=== PATIENT | female | born 1980 | race Caucasian/White ===

== ENCOUNTER 2019-01-19 08:08 | Day surgery (SDC) | payer OTHER ==
[2019-01-19] MEDS: LACTATED RINGER'S 1,000 ML IV (07:00)
[2019-01-19] MEDS: SOD CHLORIDE 0.9% 1,000 ML IV (07:00)
[2019-01-19 08:57] LABS: ADD MAN DIFF? NO
[2019-01-19 08:58] LABS: BASOPHIL # 0.1 10^3/ul (0.0-0.1); EOSINOPHILS # 0.2 10^3/ul (0.0-0.5); EOSINOPHILS % 2.8 % (0.0-7.0); HEMATOCRIT 35.3 % (37.0-47.0); HEMOGLOBIN 12.2 g/dl (12.0-16.0); LYMPHOCYTES % 36.6 % (15.0-51.0); MEAN CORPUSCULAR HEMOGLOBIN 30.6 pg (29.0-33.0); MEAN CORPUSCULAR HGB CONC 34.6 g/dl (32.0-37.0); MEAN CORPUSCULAR VOLUME 88.5 fl (82.0-101.0); MEAN PLATELET VOLUME 9.4 fl (7.4-10.4); MONOCYTE # 0.6 10^3/ul (0.3-0.9); MONOCYTES % 7.5 % (0.0-11.0); NEUTROPHIL # 4.2 10^3/ul (1.6-7.5); NEUTROPHILS % 51.9 % (39.0-77.0); PLATELET COUNT 285 10^3/UL (140-415); RED BLOOD COUNT 3.99 10^6/ul (4.20-5.40); RED CELL DISTRIBUTION WIDTH 12.5 % (11.5-14.5)
[2019-01-19 08:58] LABS: WHITE BLOOD COUNT 8.1 10^3/ul (4.8-10.8)
[2019-01-19] MEDS ORDERED: PROPOFOL 40 ML (09:56)
[2019-01-19] MEDS ORDERED: CLINDAMYCIN 900 MG/D5W (PMX) 50 ML IVPB (09:56)
[2019-01-19] MEDS ORDERED: FAMOTIDINE 20 MG INJ (09:57)
[2019-01-19] MEDS ORDERED: MIDAZOLAM 1 MG/ML 2 ML INJ (09:57)
[2019-01-19] MEDS ORDERED: FENTAnyl 50 MCG/ML VIAL (09:58)
[2019-01-19] MEDS ORDERED: ONDANSETRON 4 MG INJ (09:59)
[2019-01-19] MEDS ORDERED: morphine 2 MG INJ IV ×2 (10:00)
[2019-01-19] MEDS ORDERED: ALBUTEROL 0.083% (NEB) 2.5 MG/3 ML AMP HHN (10:00)
[2019-01-19] MEDS ORDERED: OXYCODONE/ACETAMINOPHEN (5/325) TAB PO (10:00)
[2019-01-19] MEDS ORDERED: MEPERIDINE 25 MG INJ IV (10:00)
[2019-01-19] MEDS ORDERED: FENTAnyl 50 MCG/ML VIAL IV ×2 (10:00)
[2019-01-19] MEDS ORDERED: HYDROmorphONE 1 MG/5 ML IV SYRINGE IV ×3 (10:00)
[2019-01-19] MEDS ORDERED: LABETALOL HCL 20MG INJ IV (10:00)
[2019-01-19] MEDS ORDERED: SEVOFLURANE 15 MIN (10:00)
[2019-01-19] MEDS ORDERED: DIPHENHYDRAMINE 50 MG INJ IV (10:00)
[2019-01-19] MEDS ORDERED: EPHEDrine 25 MG/5 ML SYG (11:02)
[2019-01-19] MEDS: OXYCODONE/ACETAMINOPHEN (5/325) TAB PO (11:49)
[2019-01-19] MEDS: ONDANSETRON 4 MG INJ IV (11:49)
== END 2019-01-19 12:37 | disposition home or self-care (01) ==
LOC: SDS 08:08
DX: N90.7 Vulvar cyst (principal); Z88.0 Allergy status to penicillin
CPT/HCPCS: 56405; 85025; 86850; 86900; 86901